=== PATIENT | male | born 1995 | race Hispanic/Latino ===

== ENCOUNTER 2020-01-23 14:43 | Emergency (ER) | payer SELFPAY ==
[2020-01-23] MEDS ORDERED: Adacel (T-DAP) 0.5 ML SYRINGE ONE (16:09)
== END 2020-01-23 16:47 | disposition home or self-care (01) ==
LOC: ERS 14:43
DX: S01.01XA Laceration without foreign body of scalp, initial encounter (principal); W19.XXXA Unspecified fall, initial encounter
CPT/HCPCS: 12002; 90471; 90715

== ENCOUNTER 2020-01-29 13:24 | Emergency (ER) | payer SELFPAY | END 2020-01-29 14:00 | disposition home or self-care (01) | LOC: ERS 13:24 | DX: S01.01XD Laceration without foreign body of scalp, subsequent encounter (principal) ==